=== PATIENT | male | born 1970 | race African-American/Black ===

== ENCOUNTER → 2016-06-25 | Outpatient (CLI) | payer BC, OTHER ==
[~2016-06-25] MED LIST: CARVEDILOL12.5 MG PO; FLEXERIL PO; IBUPROFEN 800800 M1 PO; LISINOPRIL20 MG PO; LORTAB 10 MG-3473 ML PO; MEDROL DOSPAK21 TAB PO; NORCO 5-325 TA1 EACH PO; [UNRECOGNIZED DRUG - OTHER]; [UNRECOGNIZED DRUG - OTHER] PO
== END ==
LOC: HYPER 06:55
DX: T81.31XD Disruption of external operation (surgical) wound, not elsewhere classified, subsequent encounter (principal); I50.22 Chronic systolic (congestive) heart failure; I10 Essential (primary) hypertension; Y83.8 Other surgical procedures as the cause of abnormal reaction of the patient, or of later complication, without mention of misadventure at the time of the procedure

== ENCOUNTER 2017-02-17 13:59 | Emergency (ER) | payer OTHER ==
[~2017-02-17] VITALS: Ht 182.9 cm; Wt 117.9 kg
[2017-02-17] MEDS ORDERED: ENTRESTO 49 MG1 EACH PO (15:33)
[2017-02-17] MEDS ORDERED: NAPROSYN500 MG PO (15:34)
[2017-02-17 16:01] VITALS: BP 173/115
== END 2017-02-17 16:05 | disposition home or self-care (01) ==
LOC: ER 13:59
DX: M77.12 Lateral epicondylitis, left elbow (principal); I10 Essential (primary) hypertension